=== PATIENT | female | born 1935 | race Caucasian/White ===

== ENCOUNTER → 2017-03-14 | Outpatient (CLI) | payer MEDICARE, BC ==
--- NOTE | 2017-03-14 16:36 | XR ---
EXAMINATION TYPE: XR chest 2V DATE OF EXAM: 03/14/2017 COMPARISON: NONE HISTORY: Chest pain TECHNIQUE: Frontal and lateral views of the chest are obtained. FINDINGS: There is no heart failure nor confluent pneumonic infiltrate. There is neurostimulator in the midthoracic spine. There are small calcified granulomata in both lungs. There is no pleural effus ion. Bony thorax is intact. IMPRESSION: No active cardiopulmonary disease.
== END | disposition home or self-care (01) ==
LOC: RADXRMAIN 16:08
PROVIDERS: ATTEND Physical Medicine & Rehabilitation
DX: M48.061 Spinal stenosis, lumbar region without neurogenic claudication (principal); M51.37 Other intervertebral disc degeneration, lumbosacral region; M47.817 Spondylosis without myelopathy or radiculopathy, lumbosacral region; M15.9 Polyosteoarthritis, unspecified; M54.2 Cervicalgia; M54.15 Radiculopathy, thoracolumbar region; M25.511 Pain in right shoulder; M25.411 Effusion, right shoulder
CPT/HCPCS: 71020